=== PATIENT | male | born 1985 | race African-American/Black ===

== ENCOUNTER 2017-03-21 12:31 | Day surgery (SDC) | payer MEDICAID ==
--- NOTE | 2017-03-21 14:23 | Operative Note-Urology ---
Procedure/Operative Record Procedure DATE OF PROCEDURE: 03/21/17 PREOPERATIVE DIAGNOSIS: Sterilization POSTOPERATIVE DIAGNOSIS: SterilizationSterilization PROCEDURE PERFORMED: Vasectomy SURGEON: Juan A Alicia ANESTHESIA: Local SPECIMENS: None BRIEF HISTORY: 31-year-old black male desire sterilization OPERATIVE NOTE: Patient taken to the operating suite after informed consent. Placed on the operating table in the supine position and prepped draped in a standard surgical fashion. The LEFT vas was grasped and brought up to the skin and local anesthetic placed in and around the skin and vas deferens. The incision was then made in the skin and the vasa was clamped and brought up through the incision. The basal sheath was incised and the vas was then stripped of its adventitial tissue and clipped proximally and distally and a 1 cm segment excised. The ends of the vas were cauterized. Hemostasis achieved and the vas placed back in the LEFT hemiscrotum. The RIGHT vas was then brought up through the same midline incision and the identical procedure was performed on the RIGHT side. 3-0 chromic placed into the skin for hemostasis. Compression dressing applied. Patient tolerated well. EBL (ml): 0 IMPRESSION: Sterilization PLAN: Tolerated the vasectomy well at [id number]
[2017-03-21 14:36] VITALS: BP 121/66
== END 2017-03-21 14:30 | disposition home or self-care (01) ==
LOC: SDC 12:31
PROVIDERS: Urology
PROC: 0VBQ3ZZ Excision of Bilateral Vas Deferens, Percutaneous Approach (ICD-10-PCS; principal; 2017-03-21 13:30)
DX: Z30.2 Encounter for sterilization (principal)